=== PATIENT | female | born 1980 | race Caucasian/White ===

== ENCOUNTER 2024-03-14 06:43 | Outpatient (OUT) | payer OTHER, SELFPAY ==
--- NOTE | 2024-03-14 06:47 | MM_ITS ---
Patient Name: AMARI LAGUERRE MR#: [id number] : 1980 Exam Date: 03/14/2024 Ordering Doctor: Non-Staff Physician RADIOLOGY REPORT PROCEDURE: MM TOMOSYNTHESIS SCREENING BI COMPARISON: None. INDICATIONS: Screening Calculator Name NCI Breast Cancer Risk Assessment Tool 5 Year Breast Cancer Risk 0.50% Lifetime Breast Cancer Risk 9.00% Personal Breast Cancer No Personal Ovarian Cancer No Treatments None Family Cancers Father with lung cancer at age 62. LOCATION: [facility] BREAST COMPOSITION: The breasts are heterogeneously dense,which may obscure small masses. FINDINGS: DIAGNOSTIC CATEGORY 2--BENIGN FINDING: RIGHT BREAST: No significant suspicious finding. Scattered benign-appearing nodules are present. LEFT BREAST: No significant suspicious finding. Scattered benign-appearing nodules are present. RECOMMENDATIONS: ROUTINE MAMMOGRAM AND CLINICAL EVALUATION IN 12 MONTHS. PLEASE NOTE: A NORMAL MAMMOGRAM DOES NOT EXCLUDE THE POSSIBILITY OF BREAST CANCER. A CLINICALLY SUSPICIOUS PALPABLE LUMP SHOULD BE BIOPSIED. Dictated by: Chintan Trejo M.D. on 03/14/2024 at 14:01 Approved by: Chintan Trejo M.D. on 03/14/2024 at 14:48
== END 2024-03-14 06:44 | disposition home or self-care (01) ==
LOC: MAMMO 06:43
DX: Z12.31 Encounter for screening mammogram for malignant neoplasm of breast (principal); Z80.1 Family history of malignant neoplasm of trachea, bronchus and lung
CPT/HCPCS: 77063; 77067